=== PATIENT | female | born 1995 | race Caucasian/White ===

== ENCOUNTER 2016-10-05 03:49 | Emergency (ER) | payer SELFPAY | END 2016-10-05 05:00 | disposition home or self-care (01) | LOC: D.ER 03:49 | DX: M54.5 Low back pain (principal); V44.6XXA Car passenger injured in collision with heavy transport vehicle or bus in traffic accident, initial encounter; Y93.89 Activity, other specified; Y92.410 Unspecified street and highway as the place of occurrence of the external cause ==